=== PATIENT | female | born 1975 | race Caucasian/White ===

== ENCOUNTER 2017-03-07 05:26 | Day surgery (SDC) | payer BC ==
[~2017-03-07] VITALS: Ht 162.6 cm; Wt 131.5 kg
[~2017-03-07 05:26] MED LIST: BIOTIN1000 MICRO PO; FISH OIL 1,0001 EAC7 PO; GLUCOPHAGE500 MG PO; GLUCOSAMINE &1 EAC1 PO; LIPITOR20 MG PO; MULTI-DAY VITA1 EACH PO; PROAIR HFA8.5 GM IH; VITAMIN B122500 MCG PO
[2017-03-07 06:02] VITALS: BP 124/74
[2017-03-07 06:56] LABS: POINT-OF-CARE METER ID UU14174212; POINT-OF-CARE USER ID AHSRSCSLC11
[2017-03-07] MEDS ORDERED: PERCOCET 5/31 TABLET PO (11:07)
[2017-03-07 11:45] LABS: POINT-OF-CARE METER ID UU13113675
[2017-03-07 13:00] VITALS: BP 122/88
[2017-03-07 14:06] VITALS: BP 115/56
[2017-03-07 14:49] VITALS: BP 122/58
== END 2017-03-07 15:00 | disposition home or self-care (01) ==
LOC: SDC 05:26
PROVIDERS: Surgery
PROC: 0WUF4JZ Supplement Abdominal Wall with Synthetic Substitute, Percutaneous Endoscopic Approach (ICD-10-PCS; principal; 2017-03-07)
DX: K43.0 Incisional hernia with obstruction, without gangrene (principal); Z90.49 Acquired absence of other specified parts of digestive tract; E66.01 Morbid (severe) obesity due to excess calories; Z68.43 Body mass index [BMI] 50.0-59.9, adult; E78.00 Pure hypercholesterolemia, unspecified; E11.9 Type 2 diabetes mellitus without complications; G47.30 Sleep apnea, unspecified; E53.8 Deficiency of other specified B group vitamins; M17.11 Unilateral primary osteoarthritis, right knee; Z83.49 Family history of other endocrine, nutritional and metabolic diseases; Z83.3 Family history of diabetes mellitus
CPT/HCPCS: 82948; C1781; J0330; J0690; J1170; J1885; J2250; J2405; J3010